=== PATIENT | female | born 1955 | race Caucasian/White ===

== ENCOUNTER 2023-01-09 14:41 | Outpatient (AMB) | payer MEDICARE, SELFPAY ==
--- NOTE | 2023-01-09 14:45 | A.OFFVIS_ITS ---
Intake Vital Signs 01/09/23 14:48 Height 5 ft 6 in Weight 223 lb 4 oz BMI 36.0 BP 136/80 Blood Pressure Location Lt brachial Position Sitting Pulse 74 Pulse Source Pulse Oximeter Pulse Oximetry (%) 97 Oxygen Delivery Method Room Air Intake Visit Reasons: ENP-OBESITY/SLEEP APNEA Intake Note: pt presents today ? RAOUL . Pt wakes up 2-3x a night. Pt does snore. Pt states she had a sleep study done 7 years ago at [facility].Pt wears a tongue sleeve and it helps. But its shifted her teeth so she isnt happy. Pt also sleeps c a wedge pillow and a travel pillow. Allergies ciprofloxacin [From Cipro] Allergy (Intermediate, Verified 01/09/23 14:53) Unknown penicillin G Allergy (Intermediate, Verified 01/09/23 14:53) Unknown HPI HPI Comments History of Present Illness Details 67 y/o female patient presents for new i n-person visit to manage sleep apnea. Pt reports that she was diagnosed with mild degree of sleep apnea about 10 years ago. It was mild degree and she treated with anti snoring tongue device. The tongue sleeve caused shift her teeth, and also she still having episodes of apnea, gasping, and non refreshing sleep. Sleep questionnaire: Have you ever been diagnosed with a sleep disorder? Yes, mild degree of sleep apnea. Have you ever had a sleep study in the past? Yes Have you ever been treated for a sleep disorder? Yes, with tongue sleeve. Do you take medications for a sleep disorder? No. Do you snore? Yes. Do you wake up gasping at night? Rarely happens. Do you have episodes of apneas? Yes. If yes, are they witnessed? Yes. Do you have episodes of nocturnal chest pain or dyspnea? Yes. Do you have difficulty initiating sleep? Yes, sometimes. Do you have difficulty maintaining sleep? Not usually. Do you wake up tired? Yes. Do you have headaches upon awakening? Yes. Do you wake up with dry mouth or throat? Yes. Do you have GERD? Yes. Do you have nocturia? Not usually. Do you have nocturnal leg cramps? No. Do you have symptoms of restless legs? No. Do you act out your dreams? No. Sleep hygiene questionnaire: What is your usual sleep routine? Usual bedtime is at 12-12:30 am; Usual wake up time is at 9-9:30 am. Do you take naps? Yes, fall asleep in her couch. Is your sleep environment cool, dark, and quiet? Yes. Do you exercise? No. Do you take caffeine or other stimulants? One big cup of coffee in the morning. Do you use electronics in bed? No. What is your work schedule? in the morning. Hypersomnolence questionnaire: Do you have daytime tiredness or fatigue? Yes. Do you easily fall asleep when inactive? Yes. Have you ever had episodes of sudden weakness? No. Have you ever had episodes of sudden weakness associated with strong emotions? No. PFSH Family History (Updated 01/09/23 @ 14:56 by Aster Key) Mother Alzheimer disease Father Prostate cancer Daughter Sleep apnea in adult Social History (Updated 01/09/23 @ 14:57 by Aster Key) Household Members: Spouse Alcohol intake: never Patient Tobacco Use Status: Never used Tobacco Review of Systems Const All systems reviewed & are unremarkable except as noted in HPI and below ENT Reports Normal hearing present Neuro Reports Normal hearing present Physical Exam Vital Signs: Last Vital Signs Pulse 74 01/09/23 14:48 BP 136/80 01/09/23 14:48 Pulse Ox 97 01/09/23 14:48 Oxygen Delivery Method Room Air 01/09/23 14:48 BMI result Body Mass Index 36.0 Const General: cooperative Nutritional Appearance: obese Orientation/consciousness: patient oriented x3 Neck Neck: Yes full ROM and Yes supple Resp Effort & Inspection: normal respiratory effort and able to speak in complete sentences Neuro General: patient oriented x3, gait normal and moves all extremities Cranial nerves: Yes Bilaterally intact EOM present, Yes Normal facial strength present, Yes Midline tongue present, Yes Symmetric palate elevation present, Yes Normal hearing present, Yes Ability to bilaterally rotate head present and Yes Ability to bilaterally elevate shoulders present Cognition (Neuro): normal cognition Gait exam (Neuro): Normal gait present Motor exam (neuro): 5/5 motor strength present throughout, Pronator motor function not present and no tremor noted Psych Appearance: grossly normal Mental Status: mental status grossly normal Speech and movement: Normal speech and movement present Affect: normal affect Attitude: cooperative Assessment & Plan Assessment & Plan (1) Daytime sleepiness: Code(s): R40.0 - Somnolence (2) Obese: Code(s): E66.9 - Obesity, unspecified (3) Sleep apnea: Code(s): G47.30 - Sleep apnea, unspecified Plan Pt is advised to undergo home sleep study to assess for sleep apnea. Will f/u with pt after study to discuss results and appropriate treatment options. Sleep hygiene education provided. Advised patient to walk 30 min daily, and wt reduction adivsed. Pt to call with any worsening concerns or questions. Orders: Orders RT home sleep study Today E66.9 - Obesity, unspecified, G47.30 - Sleep apnea, unspecified, R40.0 - Somnolence Coding Level of Care Code New Pt Level 3 (06036) Diagnoses Daytime sleepiness R40.0 Obese E66.9 Sleep apnea G47.30
[2023-01-09 14:48] VITALS: BP 136/80; PULSE 74; O2SAT 97; BMI 36.0
== END 2023-01-09 15:28 | disposition home or self-care (01) ==
PROVIDERS: PCP Internal Medicine; Visit Provider Nurse Practitioner Family
DX: R40.0 Somnolence (principal); E66.9 Obesity, unspecified; G47.30 Sleep apnea, unspecified
CPT/HCPCS: 99203

== ENCOUNTER → 2023-01-09 14:41 | Outpatient (BNVA) | payer MEDICARE, SELFPAY | PROVIDERS: PCP Internal Medicine; Visit Provider Nurse Practitioner Family | DX: R40.0 Somnolence (principal); E66.9 Obesity, unspecified; Z68.36 Body mass index [BMI] 36.0-36.9, adult; G47.30 Sleep apnea, unspecified | CPT/HCPCS: 99202 ==

== ENCOUNTER → 2023-02-03 07:59 | Outpatient (REF) | payer MEDICARE, SELFPAY | LOC: HO.SL 07:59 | PROVIDERS: PCP Internal Medicine; Visit Provider Nurse Practitioner Family | DX: G47.33 Obstructive sleep apnea (adult) (pediatric) (principal); R40.0 Somnolence; E66.9 Obesity, unspecified | CPT/HCPCS: 95806 ==

== ENCOUNTER → 2023-02-03 08:40 | Outpatient (BNV) | payer MEDICARE, SELFPAY | PROVIDERS: PCP Internal Medicine; Visit Provider Psychiatry & Neurology Neurology | DX: G47.33 Obstructive sleep apnea (adult) (pediatric) (principal) | CPT/HCPCS: 95806 ==

== ENCOUNTER → 2023-02-23 20:30 | Outpatient (REF) | payer MEDICARE, SELFPAY | LOC: HO.SL 20:30 | PROVIDERS: PCP Internal Medicine; Visit Provider Nurse Practitioner Family | DX: G47.33 Obstructive sleep apnea (adult) (pediatric) (principal); G47.36 Sleep related hypoventilation in conditions classified elsewhere | CPT/HCPCS: 95811 ==

== ENCOUNTER → 2023-02-23 22:19 | Outpatient (BNV) | payer MEDICARE, SELFPAY | PROVIDERS: PCP Internal Medicine; Visit Provider Psychiatry & Neurology Neurology | DX: G47.33 Obstructive sleep apnea (adult) (pediatric) (principal) | CPT/HCPCS: 95811 ==

== ENCOUNTER 2023-05-14 09:19 | Outpatient (AMB) | payer MEDICARE, SELFPAY ==
--- NOTE | 2023-05-14 09:24 | A.OFFVIS_ITS ---
Intake Vital Signs 05/14/23 09:31 Height 5 ft 6 in Weight 224 lb 6 oz BMI 36.2 BP 124/80 Blood Pressure Location Lt brachial Position Sitting Pulse 56 Pulse Source Pulse Oximeter Pulse Oximetry (%) 97 Oxygen Delivery Method Room Air Intake Visit Reasons: 4M f/u - CONF w/ address Intake Note: Patient presents for 4 month f/u. Allergies ciprofloxacin [From Cipro] Allergy (Intermediate, Verified 05/14/23 09:30) Unknown penicillin G Allergy (Intermediate, Verified 05/14/23 09:30) Unknown HPI HPI Comments History of Present Illness Details 67 y/o female patient presents for follo w up of sleep study. The home sleep study result was significant for a severe degree of sleep apnea. The AHI was 28/hr and oxygen nataly was 70%. Total duration of O2 sat below 88% was 45 min. Pt trialed on CPAP [id number]. The breathing and oxygenation were stabilized on all pressure and patient tolerated CPAP at [id number]. The CPAP compliance and therapy response (04/14/23-05/13/23) reviewed. The usage days 100 % and the average usage hours 7 hrs 50 min. The residual AHI was 0.4/hr. Pt reports she sleeps better with CPAP, rested and wakes up refreshed. Daytime tiredness has improved and does not need to take a nap. PFSH Family History Mother Alzheimer disease Father Prostate cancer Daughter Sleep apnea in adult Social History Household Members: Spouse Alcohol intake: never Patient Tobacco Use Status: Never used Tobacco Review of Systems Const All systems reviewed & are unremarkable except as noted in HPI and below ENT Reports Normal hearing present Neuro Reports Normal hearing present Physical Exam Vital Signs: Last Vital Signs Pulse 56 05/14/23 09:31 BP 124/80 05/14/23 09:31 Pulse Ox 97 05/14/23 09:31 Oxygen Delivery Method Room Air 05/14/23 09:31 BMI result Body Mass Index 36.2 Const General: cooperative Nutritional Appearance: obese Orientation/consciousness: patient oriented x3 Neck Neck: Yes full ROM and Yes supple Resp Effort & Inspection: normal respiratory effort and able to speak in complete sentences Neuro General: patient oriented x3, gait normal and moves all extremities Cranial nerves: Yes Bilaterally intact EOM present, Yes Normal facial strength present, Yes Midline tongue present, Yes Symmetric palate elevation present, Yes Normal hearing present, Yes Ability to bilaterally rotate head present and Yes Ability to bilaterally elevate shoulders present Cognition (Neuro): normal cognition Gait exam (Neuro): Normal gait present Motor exam (neuro): 5/5 motor strength present throughout, Pronator motor function not present and no tremor noted Psych Appearance: grossly normal Mental Status: mental status grossly normal Speech and movement: Normal speech and movement present Affect: normal affect Attitude: cooperative Assessment & Plan Assessment & Plan (1) RAOUL (obstructive sleep apnea): Comment: Severe degree of sleep apnea. The AHI was 28/hr oxygen nataly was 70%/ The duration of O2 sat below 88% was 45 min. Code(s): G47.33 - Obstructive sleep apnea (adult) (pediatric) Plan Continue to use CPAP at [id number] as patient experiences good clinical effects, sleep quality and daytime tiredness has improved. Stressed compliance, use CPAP nightly and more than 4 hrs. Wt reduction advised. Coding Level of Care Code Est Pt Level 3 (98505) Diagnoses RAOUL (obstructive sleep apnea) G47.33
[2023-05-14 09:31] VITALS: BP 124/80; PULSE 56; O2SAT 97; BMI 36.2
== END 2023-05-14 09:55 | disposition home or self-care (01) ==
PROVIDERS: PCP Internal Medicine; Visit Provider Nurse Practitioner Family
DX: G47.33 Obstructive sleep apnea (adult) (pediatric) (principal)
CPT/HCPCS: 99213

== ENCOUNTER → 2023-05-14 09:19 | Outpatient (BNVA) | payer MEDICARE, SELFPAY | PROVIDERS: PCP Internal Medicine; Visit Provider Nurse Practitioner Family | DX: G47.33 Obstructive sleep apnea (adult) (pediatric) (principal) | CPT/HCPCS: 99212 ==

== ENCOUNTER 2024-05-10 10:12 | Outpatient (AMB) | payer MEDICARE, SELFPAY ==
--- NOTE | 2024-05-10 10:36 | MHC.OFFVIS ---
Vital Signs 05/10/24 10:37 Height 5 ft 6 in Weight 212 lb BMI 34.2 BP 124/78 Blood Pressure Location Rt brachial Position Sitting Pulse 57 Pulse Source Pulse Oximeter Pulse Oximetry (%) 98 Oxygen Delivery Method Room Air Intake Visit Reasons: 1 yr f/u Intake Note: Patient presents for follow up RAOUL. Sleep compliance 04/18/24 scanned Allergies ciprofloxacin [From Cipro] Allergy (Intermediate, Verified 05/10/24 10:41) Unknown penicillin G Allergy (Intermediate, Verified 05/10/24 10:41) Unknown HPI Comments Details: 68 y/o female patient presents for follow up of sleep apnea The home sleep study result was significant for a severe degree of sleep apnea. The AHI was 28/hr and oxygen nataly was 70%. Total duration of O2 sat below 88% was 45 min. The CPAP compliance and therapy response (01/31-05/04) reviewed. CPAP at 10 cm of water. The usage days 95 % and the average usage hours 7 hrs 5 min. The residual AHI was 0.5/hr. Pt reports she sleeps better with CPAP, rested and wakes up refreshed. Daytime tiredness has improved and does not need to take a nap. SHe uses a grounding mat . PFSH Family History Mother Alzheimer disease Father Prostate cancer Daughter Sleep apnea in adult Social History Household Members: Spouse Alcohol intake: never Patient Tobacco Use Status: Never used Tobacco Review of Systems ENT Reports Normal hearing present Neuro Reports Normal hearing present Physical Exam Vital Signs: Last Vital Signs Pulse 57 05/10/24 10:37 BP 124/78 05/10/24 10:37 Pulse Ox 98 05/10/24 10:37 Oxygen Delivery Method Room Air 05/10/24 10:37 BMI result Body Mass Index 34.2 Const General: cooperative Orientation/consciousness: patient oriented x3 Neck Neck: Yes full ROM and Yes supple Resp Effort & Inspection: normal respiratory effort and able to speak in complete sentences Neuro General: patient oriented x3, gait normal and moves all extremities Cranial nerves: Yes Bilaterally intact EOM present, Yes Normal facial strength present, Yes Midline tongue present, Yes Symmetric palate elevation present, Yes Normal hearing present, Yes Ability to bilaterally rotate head present and Yes Ability to bilaterally elevate shoulders present Cognition (Neuro): normal cognition Gait exam (Neuro): Normal gait present Assessment & Plan Assessment & Plan (1) RAOUL (obstructive sleep apnea): Comment: Severe degree of sleep apnea. The AHI was 28/hr oxygen nataly was 70%/ The duration of O2 sat below 88% was 45 min. Code(s): G47.33 - Obstructive sleep apnea (adult) (pediatric) Category: Medical Plan Continue to use CPAP at [id number] as patient experiences good clinical effects, sleep quality and daytime tiredness has improved. Stressed compliance, use CPAP nightly and more than 4 hrs. Wt reduction advised. Coding Level of Care Code Est Pt Level 4 (57427) Diagnoses RAOUL (obstructive sleep apnea) G47.33
[2024-05-10 10:37] VITALS: BP 124/78; PULSE 57; O2SAT 98; BMI 34.2
--- OUTSIDE RECORDS SUMMARY | 2024-05-10 11:43 | XMS_ITS | Clinical Summary ---
Author Organization [facility] Address [address] [place] [address] Phone Care Team Providers Care Pouch Maker Name Role Phone Unavailable Primary Care Provider Unavailabl e Encounters Date Type Department Care Team Description 03/31/2024 Telephone Gastroenterology - 299 [facility] [address] [facility] [address] [place] [address] Cristhian Jimenez MD from Last 3 Months Social History Tobacco Use Types Packs/Day Years Used Date Smoking Tobacco: Never Assessed Comments Unknown Sex and Gender Information Value Date Recorded Sex Assigned at Not on file Legal Sex Female 9:26 AM EST Gender Identity Not on file Sexual Orientation Not on file Plan of Treatment Health Maintenance Due Date Last Done Comments Breast Cancer Screening 1955 DTaP,Tdap,and Td Vaccines (1 - Tdap) 1976 Pneumococcal Vaccine: 50+ Ye ars (1 of 1 - PCV) 08/11/2007 Zoster Vaccines (1 of 2) 08/11/2007 Colorectal Cancer Screening: Colonoscopy 02/04/2022 Depression Screening 02/04/2022 Hepatitis C Screening 02/04/2022 Medicare Annual Wellness Visit 02/04/2022 Osteoporosis Screening (Bone Density Screening) 02/04/2022 Social Influencers of Health Screening 02/04/2022 Falls Risk Assessment 2022 COVID-19 Vaccine (2023-2 5 season) 2023 Influenza Vaccine (#1) 2023 RSV Immunization Patients 60 + Years Old (1 - 1-dose 75+ series) 2032 HIB Vaccines Aged Out No longer eligi ble based on patient's age to complete this topic HPV Vaccines Aged Out No longer eligi ble based on patient's age to complete this topic Hepatitis A Vaccines Aged Out No long er eligible based on patient's age to complete this topic Hepatitis B Vaccines Aged Out No long er eligible based on patient's age to complete this topic IPV Vaccines Aged Out No longer eligi ble based on patient's age to complete this topic MMR Vaccines Aged Out No longer eligi ble based on patient's age to complete this topic Meningococcal ACWY Vaccine Aged Out N o longer eligible based on patient's age to complete this topic Meningococcal B Vacine Aged Out No lo nger eligible based on patient's age to complete this topic RSV Immunization Patients Un tyrone 20 months Aged Out No longer eligible b ased on patient's age to complete this topic Varicella Vaccines Aged Out No longer eligible based on patient's age to complete this topic Insurance [employer]
--- OUTSIDE RECORDS SUMMARY | 2024-05-10 11:43 | XMS_ITS | Patient Health Record ---
Author Organization [facility] Address [address] [place] [address] Support Name Relationship Address Phone TOÑA ALEMAN Guarantor Unknown Reason For Referral No Information Medications Medication SIG (Take, Route, Fr equency, Duration) Notes Start Date End Date Status Vitamin B Complex ORAL daily for -3 [facility] 03/27/2012 Active Percocet 5-325 1 ORAL every six hours for 10 [facility] 03/27 Active miSOPROStol 200MCG 2 ORAL NIGHT BEFORE PROCEDURE for -3 [facility] 03/27/2012 Active Milk Thistle ORAL daily for -3 [facility] 03/27/2012 Active Lutein ORAL daily for -3 [facility] 03/27/2012 A ctive Immunizations Vaccine Route Administration Date Status Comme nts Influenza, live, intranasal Intramuscular 03/18/2011 Pendi ng Problems Problem Type SNOMED Code ICD Code Onset Dates Problem Status W/U Status Risk Notes Problem Obesity (367119916) Obesity, unspecified (278.00) Active confirmed Diag Problem Depressive disorder (23958697) Depressive disorder, not elsewhere classified (311) Active confirmed Major Problem Postmenopausal bleeding (74003165) Postmenopausal bleeding (627.1) Active confirmed Major Problem Menopausal symptom (74942696) Symptomatic menopausal or female climacteric states (627.2) Active confirmed Diag Problem General examination of patient (471539620) Routine general medical examination at health care facility (V70.0) Active confirmed Diag Problem Gynecological examination normal (378026938133787) Routine gynecological examination (V72.31) Active confirmed Major Problem Dietary management surveillance (865383135) Dietary surveillance and counseling (V65.3) Active confirmed Diag Problem Exercises teaching, guidance, and counseling (105327311) Exercise counseling (V65.41) Active confirmed Diag Problem Screening for malignant neoplasm of colon (799729310) Special screening for malignant neoplasms, colon (V76.51) Active confirmed Major Plan Of Treatment No Information Insurance Providers Payer Name Payer Address Payer Phone Subscriber Number Group Number Insured Name Patient Relationship to Insured Coverage Start Date Coverage End Date [facility] [address] [facility] [place] [id number] [phone] [id number] GRANT ALEMAN Spouse - patient is the spouse of the insured 2
--- OUTSIDE RECORDS SUMMARY | 2024-05-10 11:43 | XMS_ITS | Encounter Summary ---
Author Organization [facility] [address] Address [address] [place] [address] Care Team Providers Care Gold Nib Grinder Name Role Phone Unavailable Primary Care Provider Unavailabl e Encounter Details Date Type Department Care Team (Late st Contact Info) Description 03/31/2024 Telephone Gastroenterology - [address] [place] [id number] Cristhian Jimenez MD [address] [place] [address] [place] [address] Social History Tobacco Use Types Packs/Day Years Used Date Smoking Tobacco: Never Assessed Comments Unknown Sex and Gender Information Value Date Recorded Sex Assigned at Not on file Legal Sex Female 9:26 AM EST Gender Identity Not on file Sexual Orientation Not on file documented as of this encounter Progress Notes * Joelle Juan - 03/31/2024 11:42 AM EST Pt needs to r/s 04/13/24 colon, please call documented in this encounter Plan of Treatment Not on file documented as of this encounter Visit Diagnoses Not on filedocumented in this encounter
== END 2024-05-10 10:53 | disposition home or self-care (01) ==
PROVIDERS: PCP Internal Medicine; Visit Provider Psychiatry & Neurology Neurology
DX: G47.33 Obstructive sleep apnea (adult) (pediatric) (principal)
CPT/HCPCS: 99214

== ENCOUNTER → 2024-05-10 10:12 | Outpatient (BNVA) | payer MEDICARE, SELFPAY | PROVIDERS: PCP Internal Medicine; Visit Provider Psychiatry & Neurology Neurology | DX: G47.33 Obstructive sleep apnea (adult) (pediatric) (principal) | CPT/HCPCS: 99212 ==